=== PATIENT | female | born 1990 | race Caucasian/White ===

== ENCOUNTER → 2020-12-01 15:08 | Outpatient (CLI) | payer OTHER, SELFPAY ==
[2020-12-01] MEDS: COVID-19 VACC #1, MRNA(MOD) 100 MCG/0.5 ML VIAL IM (15:16)
== END ==
PROVIDERS: Visit Provider Internal Medicine
DX: Z23 Encounter for immunization (principal)
CPT/HCPCS: 0011A; 91301

== ENCOUNTER → 2020-12-29 15:23 | Outpatient (CLI) | payer OTHER, SELFPAY ==
[2020-12-29] MEDS: COVID-19 VACC #2, MRNA(MOD) 100 MCG/0.5 ML VIAL IM (15:25)
== END ==
PROVIDERS: Visit Provider Internal Medicine
DX: Z23 Encounter for immunization (principal)
CPT/HCPCS: 0012A; 91301

== ENCOUNTER 2021-02-06 21:42 | Emergency (ER) | payer OTHER, SELFPAY ==
[2021-02-06 22:28] VITALS: BP 136/61; PULSE 78; RESP 16; TEMP 36.6; O2SAT 100; BMI 28.3
--- NOTE | 2021-02-06 22:33 | DI.RAD.S_ITS ---
PROCEDURE: XR ANKLE RT MIN 3V INDICATIONS: heavy trash can fell on leg, pain/swelling to ankle and foot TECHNIQUE: 3 views of the ankle were acquired. COMPARISON: None. FINDINGS: Bones: No fractures or dislocations. Ankle mortise is normally aligned. No suspicious bony lesions. Soft tissues: No tibiotalar joint effusion. Achilles tendon appears normal. Soft tissue swelling. IMPRESSION: No fracture. No osseous lesion. If symptoms and/or clinical suspicion for pathology persists, further assessment with repeat radiographs (7-10 days) or advanced imaging (e.g. CT, MRI or bone scan) should be considered. Dictated by: Crystal Quevedo MD, PhD on 02/07/2021 at 8:12 Approved by: Crystal Quevedo MD, PhD on 02/07/2021 at 8:13
--- NOTE | 2021-02-06 22:33 | DI.RAD.S_ITS ---
PROCEDURE: XR FOOT RT MIN 3V INDICATIONS: heavy trash can fell on leg, pain/swelling to ankle and foot TECHNIQUE: 3 views of the foot were acquired. COMPARISON: None. FINDINGS: Bones: No fractures or dislocations. No suspicious bony lesions. Soft tissues: No tibiotalar joint effusion. Achilles tendon appears normal. Soft tissue swelling. IMPRESSION: No fracture. No osseous lesion. If symptoms and/or clinical suspicion for pathology persists, further assessment with repeat radiographs (7-10 days) or advanced imaging (e.g. CT, MRI or bone scan) should be considered. Dictated by: Crystal Quevedo MD, PhD on 02/07/2021 at 8:10 Approved by: Crystal Quevedo MD, PhD on 02/07/2021 at 8:12
[2021-02-06] MEDS: IBUPROFEN 400 MG TABLET PO (22:37)
[2021-02-07] MEDS: OXYCODONE/ACETAMINOPHEN 5/325 TABLET 1 TAB PO (01:34)
[2021-02-07] MEDS: OXYCODONE/APAP 5/325 PREPACK 1 BOTTLE MISC (01:35)
--- NOTE | 2021-02-07 06:22 | ED.LOWEXIN ---
HPI - Extremity Injury (Lower) General Chief Complaint: Extremity Injury, Lower Stated Complaint: RIGHT LEG INJURY Time Seen by Provider: 02/07/21 01:27 Source: patient Mode of arrival: Wheelchair History of Present Illness HPI Narrative: Otherwise healthy 30-year-old woman presents with right calf pain after having her right leg trapped under a full yd been earlier this evening. She had been trying to move the been it fell and landed on the right leg. She was eventually able to extricate the leg but is having increasing swelling, redness, tenderness and comes in for further evaluation Related Data Previous Rx's Medication Instructions Recorded oxycodone-acetaminophen 1 tab PO Q6H PRN 5 Days #20 tab 02/07/21 Allergies Allergy/AdvReac Type Severity Reaction Status Date / Time No Known Drug Allergies Allergy Verified 02/06/21 22:33 Review of Systems Review of Systems Narrative: Remainder of complete review of systems is otherwise unremarkable except for that included in the HPI. Patient History Social History Smoking Status: Never smoker Smoking Status: Never smoker alcohol intake frequency: 0-2 drinks per day Substance Use Type: does not use Exam Narrative Exam Narrative: General: Alert appropriate in no acute distress Respiratory: Able to speak in full sentences, no obvious respiratory distress Skin: No obvious rashes, warm and dry Neurologic: Grossly intact no obvious asymmetries or abnormalities Psych: appropriate insight and affect, cooperative Extremity: Right calf significantly edematous with soft compartments. She does have full sensation and blood flow to the toes but has difficulty moving her ankle or flexing her foot due to calf pain. There is minor abrasion on the medial aspect of the calf and no injury to the knee or more proximal. Initial Vital Signs Initial Vital Signs: Vital Signs Temperature 97.9 F 02/06/21 22:28 Pulse Rate 78 02/06/21 22:28 Respiratory Rate 16 02/06/21 22:28 Blood Pressure 136/61 02/06/21 22:28 Pulse Oximetry 100 02/06/21 22:28 Course Orders Ordered: ED Orders 02/06/21 22:33 XR ankle RT min 3V Stat XR foot RT min 3V Stat Discontinued Medications Ibuprofen (Ibuprofen 400 Mg Tablet) 400 mg PO NOW ONE Stop: 02/06/21 22:35 Last Admin: 02/06/21 22:37 Dose: 400 mg Documented by: RONNY Oxycodone/Acetaminophen (Oxycodone/Acetaminophen 5/325 Tablet) 1 tab PO NOW ONE Stop: 02/07/21 01:28 Last Admin: 02/07/21 01:34 Dose: 1 tab Documented by: MANDY Oxycodone/Acetaminophen (Oxycodone/Apap 5/325 Prepack) 1 bottle MISC SEEINSTR ONE Stop: 02/07/21 01:28 Last Admin: 02/07/21 01:35 Dose: 1 bottle Documented by: MANDY Vital Signs Vital signs: Vital Signs - 8 hr 02/06/21 22:28 Temperature 97.9 F Pulse Rate 78 Respiratory Rate 16 Blood Pressure 136/61 Pulse Oximetry 100 MDM - Extremity Injury (Lower) Medical Records Attestation: I reviewed the patient's medical records. Imaging Data Right foot: Radiologist's Impression: Generalized soft tissue swelling, especially medially. Bones intact, no dislocations. Right ankle: Radiologist's Impression: Generalized soft tissue swelling especially medially MDM Narrative Medical decision making narrative: 30-year-old woman with crush type injury to the right calf with no bony injury. On initial exam while the calf is swollen the compartments are not particularly tense and I do not suspect compartment syndrome at this time. We talked about pain control elevation, compression stockings once the surface is not so hypersensitive. She is given crutches to help with mobility for the next day or so. We carefully reviewed signs and symptoms of developing compartment syndrome and reasons to return to the emergency department. She is safe for home discharge Discharge Plan Departure Patient Disposition: Home Clinical Impression: Injury of lower leg, right Qualifiers: Encounter type: initial encounter Qualified Code(s): S89.91XA - Unspecified injury of right lower leg, initial encounter Instructions: Acute Compartment Syndrome, DI for Contusion Activity Restrictions/Additional Instructions: Thank you for coming in today Fortunately you did not break any bones, you do have dramatic amount of swelling and soft tissue contusion from your encounter with your for full yard bin. Using 400 mg of ibuprofen (2 [id number] pills) and 1 Tylenol every 6 hours can be very helpful in controlling pain. For severe pain 400 mg of ibuprofen and 1 Percocet. As the pain is becoming more tolerable you may find that compression socks are helpful in controlling the achiness related to the swelling itself. Keeping it elevated and ice to the middle of your calf may also be helpful. Use the crutches as needed. At this point this all looks like soft tissue bruising without any bone injury. There is an entity called compartment syndrome -the muscles get so swollen inside their fascial sheath that the muscles can start . The pain from this is excruciating. If you are having worsening pain and can not even tolerate touch to the skin and the entire calf feels rock hard, please return to the ER I would suggest to schedule a follow-up appointment with your primary care doctor in about a week. If symptoms are entirely resolved and you are doing perfectly well by then you can cancel. I hope you heal quickly Prescriptions: New oxycodone-acetaminophen 5-325 mg tablet 1 tab PO Q6H PRN (Reason: pain) 5 Days Qty: 20 RF: 0
== END 2021-02-07 01:45 | disposition home or self-care (01) ==
PROVIDERS: Emergency Provider Emergency Medicine
DX: S89.91XA Unspecified injury of right lower leg, initial encounter (principal); W19.XXXA Unspecified fall, initial encounter
CPT/HCPCS: 73610; 73630; 99283; 99284